=== PATIENT | male | born 1995 | race Caucasian/White ===

== ENCOUNTER 2017-01-08 11:02 | Emergency (ER) | payer SELFPAY ==
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
--- NOTE | 2017-01-10 12:46 | CT SCAN REPORT ---
EXAM: CT OF THE CERVICAL SPINE WITHOUT CONTRAST HISTORY: NECK PAIN. TECHNIQUE: Sequential axial images were obtained through the cervical spine without intravenous contrast administration. Sagittal and coronal reformatted images were performed. FINDINGS: There is normal vertebral body height and alignment. There is no evidence of fracture, subluxation or perched facet. The lateral masses are well aligned. The prevertebral soft tissues are normal. IMPRESSION: 1. NEGATIVE CT EXAMINATION OF THE CERVICAL SPINE. 2. INCIDENTAL NOTE IS MADE OF PROMINENCE OF THE PALATINE TONSILS WITH PROMINENT LYMPH NODES IN THE SOFT TISSUES OF THE NECK. CORRELATION WITH PATIENT 'S CLINICAL EXAM IS RECOMMENDED. JOB NUMBER: [id number] MTDD
== END 2017-01-08 14:01 | disposition home or self-care (01) ==
LOC: ER 11:02
DX: S16.1XXA Strain of muscle, fascia and tendon at neck level, initial encounter (principal); V43.52XA Car driver injured in collision with other type car in traffic accident, initial encounter; Y92.411 Interstate highway as the place of occurrence of the external cause
CPT/HCPCS: 72125; 99283